=== PATIENT | female | born 1960 | race Caucasian/White ===

== ENCOUNTER 2019-08-14 09:01 | Emergency (ER) | payer OTHER, SELFPAY ==
[2019-08-14 09:13] VITALS: BP 145/88; PULSE 92; RESP 16; TEMP 36.2; O2SAT 97
--- NOTE | 2019-08-14 09:23 | ED.DENTAL ---
HPI - Dental/Oral General Chief complaint: Dental/Oral Stated complaint: Tooth Abscess/Eye problems Time Seen by Provider: 08/14/19 09:26 Source: patient and RN notes reviewed Mode of arrival: ambulatory Limitations: no limitations History of Present Illness HPI Narrative: 59-year-old female presents with concern for dental pain, facial swelling. Reports history of dental infections. Reports dental pain started yesterday on the left upper side of her mouth with left upper facial swelling. Reports swelling under her left eye. Denies any eye discharge. Denies any new missing, broken teeth. Denies fever MD Complaint: tooth pain Related Data Allergies Allergy/AdvReac Type Severity Reaction Status Date / Time Penicillins Allergy Severe Stopped Verified 12/14/18 12:48 Breathing Review of Systems Review of Systems: Narrative: CONSTITUTIONAL: Denies malaise, chills, sweats, or fever. EYES: Reports occasional left eye blurriness, denies redness, or discharge. ENT: Reports rhinorrhea, congestion, sinus pain. Denies otalgia or sore throat. Reports left upper facial swelling, left upper dental pain CARDIOVASCULAR: Denies chest pain, palpitations RESPIRATORY: Denies cough or dyspnea. SKIN: Denies rash or itching. Reports left upper facial swelling, swelling under the left eye MUSCULOSKELETAL: Denies myalgia. NEUROLOGIC: Denies headache. All systems reviewed & are unremarkable except as noted in HPI and below PMFSH Comments At time of signature, agree with nursing past medical, surgical, social and family history. There is no relevant family history pertinent to the presenting complaint Exam Narrative: Exam Narrative: GENERAL: Well-appearing, well-nourished, and in no acute distress. HEAD: Normocephalic, atraumatic. EYES: PERRLA, conjunctivae clear, and EOMI. No nystagmus. ENT: Nares clear, turbinates pink, clear rhinorrhea, no epistaxis. Mucous membranes moist. Oropharynx without erythema or lesions. Tonsils not enlarged and without exudate. Many missing teeth, caries on the left upper side where patient is complaining of pain, only tooth #15, 11 and 12 remain; caries visible in all 3 teeth. No periapical abscess visible NECK: Supple. CHEST: No respiratory distress. Speaks in full sentences. HEART: Regular rate and rhythm. SKIN: Warm, dry, no rash. Mild facial swelling noted to the left upper face, under the left eye with no eyelid involvement NEURO: Alert and oriented x3. No focal deficits. PSYCH: Normal mood and affect Course Course Emergency Course: Patient is aware of diagnosis, understands and agrees to treatment plan. Anticipatory guidance given. Patient agrees to follow-up as directed and is aware of reasons to seek care at the emergency department. Portions of this record may have been created with voice recognition software Vital Signs Vital signs: Vital Signs Temperature 97.2 F L 08/14/19 09:13 Pulse Rate 92 08/14/19 09:13 Respiratory Rate 16 08/14/19 09:13 Blood Pressure 145/88 H 08/14/19 09:13 Pulse Oximetry 97 08/14/19 09:13 Temperature 97.2 F L 08/14/19 09:13 Pulse Rate 92 08/14/19 09:13 Respiratory Rate 16 08/14/19 09:13 Blood Pressure 145/88 H 08/14/19 09:13 Pulse Oximetry 97 08/14/19 09:13 Reviewed. MDM - Dental/Oral MDM Narrative Medical decision making narrative: Patients pain and complaint coupled with physical findings are consistant with dentalgia. There are no focal signs of space occupying lesions that are compromising to the airway; no dysphagia, odynophagia, dysphonia, or dyspnea. No uvular deviation or soft palate edema. Patient is non-toxic appearing. The floor of the mouth is soft with no signs of Goyo's Angina; no induration below mandible, no neck pain. Patient is without trismus or drooling and able to swallow secretions. Discussed with patient limited diagnostic capability at the [facility] and seeking further evaluation in the emergency department
== END 2019-08-14 09:39 | disposition home or self-care (01) ==
PROVIDERS: Emergency Provider Nurse Practitioner
DX: K04.7 Periapical abscess without sinus (principal); R01.1 Cardiac murmur, unspecified
CPT/HCPCS: 99213; G0463

== ENCOUNTER 2022-02-02 16:54 | Emergency (ER) | payer OTHER, SELFPAY ==
[2022-02-02 17:05] VITALS: BP 139/62; PULSE 63; RESP 16; TEMP 36.1; O2SAT 98
--- NOTE | 2022-02-02 17:09 | ED.EAR ---
HPI - Ear Problem General Chief complaint: Ear Stated complaint: Ear Pain Time Seen by Provider: 02/02/22 17:10 Source: patient, RN notes reviewed and old records reviewed Mode of arrival: ambulatory Limitations: no limitations History of Present Illness HPI Narrative: 61-year-old female presents to the [facility] with complaints of right ear pain for the last 7 to 10 days. No treatment prior to arrival. History of ear infections. Patient is a current smoker. Has a history of seasonal allergies and thought it was that it first. MD Complaint: ear pain Related Data Allergies Allergy/AdvReac Type Severity Reaction Status Date / Time Penicillins Allergy Severe Stopped Verified 02/02/22 17:03 Breathing Review of Systems Review of Systems: All systems reviewed & are unremarkable except as noted in HPI and below Constitutional: Constitutional: Reports no additional constitutional complaints, Denies chills and Denies fever(s) Eyes: Eyes: Reports no additional eye complaints ENT: Reports as per HPI, Denies change in voice, Denies dental pain, Denies vertigo, Denies dizziness and Denies throat swelling Comments: Ear pain Cardiovascular: Cardiovascular: Reports no additional cardiovascular complaints, Denies chest pain and Denies dyspnea Respiratory: Respiratory: Reports no additional respiratory complaints, Denies cough and Denies dyspnea Gastrointestinal: Gastrointestinal: Reports no additional gastrointestinal complaints, Denies abdominal pain, Denies nausea and Denies vomiting Musculoskeletal: Musculoskeletal: Reports no additional musculoskeletal complaints Integumentary/Breasts: Skin/Breast: Reports system reviewed and no additional complaints, except as docu Neurologic: Reports system reviewed and no additional complaints, except as documented, Denies vertigo and Denies dizziness Psychiatric: Psychiatric: Reports no additional psychiatric complaints Allergic/Immunologic: Allergic/Immunologic: Reports no additional allergic/immunologic complaints and Denies throat swelling PMFSH Past Medical History Medical History (Updated 02/03/22 @ 10:11 by Hanane Palacio APRN) Patient denies medical problems Surgical History Surgical History (Updated 02/03/22 @ 10:09 by Hanane Palacio APRN) No history of previous surgery Social History Social History (Updated 02/03/22 @ 10:09 by Hanane Palacio APRN) Smoking packs per day: 0.5 Smoking cigarettes per day: 10.0 Years smoked: 42 Smoking pack-years: 21.00 Smoking status: Current every day smoker Tobacco type: cigarettes Gender identity (if verbalized by the patient): Female Comments At the time of my signature, I reviewed and agree with the nursing past medical, surgical, social, and family history. There is no relevant family history pertinent to the patient complaint. Exam Const: General: healthy appearing and no acute distress Nutritional Appearance: well nourished Orientation/consciousness: patient oriented x3 Limitations: no limitations HENMT: Head: normal to inspection Ears: external ears normal, Abnormal EAC present erythema on the right and edema on the right and TM abnormal erythematous on the right General nose exam: Normal external nose present and Normal nasal mucous membranes and turbinates present Face and sinus: normal facial exam Mouth: Yes Normal oral and palatal mucosa present Throat: posterior oropharynx normal, tonsils normal and uvula midline Eyes: Conjunctivae: conjunctivae normal Pupils: Equal, round and reactive pupils present Neck: Neck: normal visual inspection, no lymphadenopathy and no meningeal signs Chest: Chest palpation & inspection: normal inspection of the chest Resp: Effort & Inspection: normal respiratory effort and no use of accessory muscles Auscultation: clear to auscultation bilaterally, no crackles, no rales, no rhonchi and no wheezes Cardio: Rate: regular rate Rhythm: regular rhythm Skin:
== END 2022-02-02 17:32 | disposition home or self-care (01) ==
PROVIDERS: Emergency Provider Nurse Practitioner
DX: H60.91 Unspecified otitis externa, right ear (principal); H66.91 Otitis media, unspecified, right ear; F17.210 Nicotine dependence, cigarettes, uncomplicated
CPT/HCPCS: 99213; G0463

== ENCOUNTER 2022-06-23 09:40 | Emergency (ER) | payer OTHER, SELFPAY ==
[2022-06-23 10:48] VITALS: BP 127/111; PULSE 98; RESP 16; TEMP 36.3; O2SAT 97
--- NOTE | 2022-06-23 11:03 | ED.URI ---
HPI - URI/Sore Throat General Chief Complaint: Upper Respiratory Infection Stated Complaint: uri Time Seen by Provider: 06/23/22 11:04 Source: patient and RN notes reviewed Mode of arrival: ambulatory Limitations: no limitations History of Present Illness HPI Narrative: 61-year-old female presented for complaint of sinus congestion, cough, and chest congestion for 5 days. She endorses decreased appetite felt lightheaded last night as a result. She denies shortness of breath, wheezing, nausea vomiting, diarrhea, fevers or chills. She has taken [id number]-irw-ereddte Mucinex and Olga-[place] without relief. She is requesting work note. denies known contacts. Smokes 1PPD+. MD elicited complaint: cough Related Data Allergies Allergy/AdvReac Type Severity Reaction Status Date / Time Penicillins Allergy Severe Stopped Verified 06/23/22 11:09 Breathing Review of Systems Review of Systems: per HPI [facility] Past Medical History Medical History Patient denies medical problems Surgical History Surgical History No history of previous surgery Social History Social History Smoking packs per day: 0.5 Smoking cigarettes per day: 10.0 Years smoked: 42 Smoking pack-years: 21.00 Smoking status: Current every day smoker Tobacco type: cigarettes Gender identity (if verbalized by the patient): Female Exam Narrative: GENERAL: Ill-appearing, nontoxic HEAD: Normocephalic EYES: PERRLA, conjunctivae clear ENT: Mucous membranes moist. TM pearly gutierrez with dull light reflex bilaterally; no tragal tenderness. Oropharynx erythematous without lesions or exudate NECK: Supple. No lymphadenopathy CHEST:Lungs diminished throughout, exp wheezing to bases. No respiratory distress, speaks in full sentences. HEART: Regular rate and rhythm. No murmur heard. SKIN: Warm, dry, no rash. NEURO: Alert and oriented x3. PSYCH: Normal mood and affect Course Course Emergency Course: Patient is aware of diagnosis, understands and agrees to treatment plan. Anticipatory guidance given. Patient agrees to follow-up as directed and is aware of reasons to seek care at the emergency department. Portions of this record may have been created with voice recognition software Level of Care: Express Care Visit Vital Signs Vital signs: Vital Signs Temperature 97.4 F L 06/23/22 10:48 Pulse Rate 98 06/23/22 10:48 Respiratory Rate 16 06/23/22 10:48 Blood Pressure 127/111 H 06/23/22 10:48 Pulse Oximetry 97 06/23/22 10:48 Oxygen Delivery Room Air 06/23/22 10:48 Temperature 97.4 F L 06/23/22 10:48 Pulse Rate 98 06/23/22 10:48 Respiratory Rate 16 06/23/22 10:48 Blood Pressure 127/111 H 06/23/22 10:48 Pulse Oximetry 97 06/23/22 10:48 Oxygen Delivery Room Air 06/23/22 10:48 reviewed MDM - URI/Sore Throat MDM Narrative Medical decision making narrative: Results of COVID test reviewed with patient. Advised supportive measures and signs/symptoms to go to the ER. Pt is appropriate for outpt treatment and f/u. Differential Diagnosis Differential diagnosis: Likely upper respiratory infection, sinusitis and viral infection Discharge Plan Discharge Clinical Impression: Viral infection Patient Disposition: Home, Self-Care Condition: Stable Instructions: Viral Syndrome (ED) Additional Instructions: COVID test was negative today. You should avoid crowds until you are fever free for 24 hours without the use of fever reducing medications, or the symptoms are improved Rest. Drink plenty of fluids. Tylenol 1000mg every 8 hours as needed for pain/fever Recommend Flonase spray and Zyrtec (or Claritin/Cyndie) for sinus pressure/congestion over the counter Cough syrup may cause drowsiness; avoid driving or take it at night time. Follow up with
== END 2022-06-23 11:31 | disposition home or self-care (01) ==
PROVIDERS: Emergency Provider Nurse Practitioner Family
DX: B34.9 Viral infection, unspecified (principal); Z20.822 Contact with and (suspected) exposure to COVID-19; F17.210 Nicotine dependence, cigarettes, uncomplicated
CPT/HCPCS: 87426; 99213; C9803; G0463